=== PATIENT | female | born 1995 | race Caucasian/White ===

== ENCOUNTER 2019-10-24 18:00 | Emergency (ER) | payer OTHER ==
[2019-10-24 18:15] VITALS: BP 120/80; PULSE 62; TEMP 98.3; BMI 33.6
[2019-10-24 18:29] LABS: HCG,QUALITATIVE URINE Negative
[2019-10-24 18:36] LABS: EPITHELIAL CELLS MODERATE /hpf
[2019-10-24] MEDS ORDERED: SODIUM CHLORIDE 0.9% 500 ML INFUS.BAG IV ONE (19:17)
--- NOTE | 2019-10-24 19:22 | PDOC ---
History of Present Illness - General Chief Complaint: Pain, Acute Stated Complaint: ABD PAIN Time Seen by Provider: 10/24/19 19:16 History Source: Patient Exam Limitations: No Limitations - History of Present Illness Initial Comments: 10/24/19 19:19 [id number] p/w LLQ twisting/squeezing abdominal pain for the past 4 days, intermittently, with sharper twinges of pain occasionally. Saw [facility] today and had negative hCG and UA per her report. Notes nausea which is mild, no f/c/v/c, no vaginal discharge or strange odors. Just switched OCP and started her menstrual period this morning and notes it is otherwise normal - she is usually regular monthly but her LMP was 2 weeks ago, attributes it to her new BC. Has had mild diarrhea which is nonbloody and nonblack/nonwhite. Did not take any medications for the pain or nausea. Past History - Medical History Allergies/Adverse Reactions: Allergies Allergy/AdvReac Type Severity Reaction Status Date / Time No Known Allergies Allergy Verified 10/24/19 18:02 Home Medications: Ambulatory Orders Vit No.130/Iron/Folic [ Vitamins] 1 each PO DAILY 08/28/15 Asthma: No Cancer: No Cardiac Disorders: No COPD: No Diabetes: No HTN: No Seizures: No Thyroid Disease: No Other medical history: DENIES - Reproductive History Is Patient Now?: No (UNKNOWN) Cervical CA: No Dysfunctional Uterine Bleeding: No Ectopic : No Endometrial CA: No Polycystic Ovaries: No Tubal Ligation: No - Immunization History Immunization Up to Date: Yes - Psycho-Social/Smoking History Smoking Status: No Smoking History: Never smoked Have you smoked in the past 12 months: No Number of Cigarettes Smoked Daily: 0 - Substance Abuse Hx (Audit-C & DAST Scrn) How often the patient has a drink containing alcohol: Monthly or less Number of drinks the patient has on a typical day: 1 or 2 How often the patient has six or more drinks on one occasion: Never Score: In Men: 4 or > Positive; In Women: 3 or > Positive: 1 Screen Result (Pos requires Nsg. Audit-10AR): Negative In the last yr the pt used illegal drug/Rx for NonMed reason: No Score: Yes response is considered Positive: 0 Screen Result (Positive result requires Nsg. DAST-10): Negative Review of Systems - Review of Systems Able to Perform ROS?: Yes Comments:: 10/25/19 00:05 GEN: no fever, chills, malaise, or generalized weakness HEENT: no ear pain, congestion, sore throat, vision change, or eye pain CV: no chest pain, palpitations, lightheadedness, syncope, or edema RESP: no SOB, wheezing, or cough GI: abdominal pain, nausea, no vomiting, diarrhea, constipation, or rectal bleed : on menstrual period, no dysuria, hematuria, or discharge MSK: no muscle weakness or pain, no joint swelling or pain NEURO: no headache, vertigo, numbness, tingling, or focal weakness PSYCH: no SI, HI, or behavior change SKIN: no jaundice, rash, lesions, or unexplained bruises ROS otherwise negative except as noted in HPI *Physical Exam - Vital Signs Last Vital Signs Temp Pulse Resp BP Pulse Ox 98.3 F 62 16 120/80 100 10/24/19 18:02 10/24/19 18:02 10/24/19 18:02 10/24/19 18:02 10/24/19 18:02 - Physical Exam 10/24/19 19:22 GENERAL: well-appearing, comfortable, A/Ox4, no distress, answers questions appropriately HEENT: PERRLA, EOMI, moist mucous membranes NECK/BACK: no midline ttp, no spinal step-off or deformity, no hematoma, full ROM, neck supple CARDIOVASCULAR: regular rate/rhythm, no MGR, strong peripheral pulses, capillary refill <2 seconds, extremities wwp, no edema LUNGS/RESPIRATORY: no respiratory distress, CTAB GI/ABDOMEN: symmetric [id number], normoactive BS, soft, no tenderness to palpation, no midline pulsatile masses : no CVA tenderness MSK/EXTREMITIES: no muscle atrophy, no acute deformity SKIN: warm and dry, no pallor, no jaundice, no rash, no pathologic-appearing bruising, no skin breakdown, no cuts, no lesions NEUROLOGICAL: GCS 15, CN II-XII grossly intact, 5/5 strength proximally and distally, no facial droop ED Treatment Course - LABORATORY CBC & Chemistry Diagram: 10/24/19 19:40 10/24/19 19:17 - ADDITIONAL ORDERS Additional order review: Laboratory Results 10/24/19 18:21 Urine Color Yellow Urine Appearance Slightly Urine pH 5.5 Urine Protein Trace Urine Glucose (UA) Negative Urine Ketones Negative Urine Blood 3+ H Urine Nitrite Negative Urine Bilirubin Negative Urine Urobilinogen 0.2 Ur Leukocyte Esterase Negative Urine RBC 10-20 Urine WBC 0-2 Ur Transition Epith Cell Moderate Urine Bacteria Rare Urine HCG, Qual Negative - RADIOLOGY Radiology Studies Ordered: Category Date Time Status TRANSVAGINAL ULTRASOUND US [US] Stat Ultrasound 10/24/19 19:17 Ordered Medical Decision Making - Medical Decision Making 10/25/19 00:06 Adult female Pt p/w left-sided abdominal pain. Patient defers pelvic exam and states she had one completed on 10/22/19 at her [facility] appointment. Initial Vital Signs Temp Pulse Resp BP Pulse Ox 98.3 F 62 16 120/80 100 10/24/19 18:02 10/24/19 18:02 10/24/19 18:02 10/24/19 18:02 10/24/19 18:02 Most likely dysmenorrhea or ruptured ovarian cyst, less likely but possible UTI, unlikely ovarian torsion, unlikely ectopic or other more serious [facility] [employer] [facility] pathology. Provider Orders Category Date Time Status CBC WITH DIFFERENTIAL Stat Lab 10/24/19 19:40 Completed COMP METABOLIC PANEL Stat Lab 10/24/19 19:17 Completed PGU [HCG,QUALITATIVE URINE] Stat Lab 10/24/19 18:21 Completed UA ([facility] ONLY) Stat Lab 10/24/19 18:21 Completed URINE MICROSCOPIC (MAG) Stat Lab 10/24/19 18:21 Completed Sodium Chloride [Normal Saline -] Medication 10/24/19 19:17 Discontinued 1,000 ml IV ONCE ONE IV Insert NOW Phy Order 10/24/19 19:17 Completed TRANSVAGINAL ULTRASOUND US [US] Stat Ultrasound 10/24/19 19:17 Taken Medications Discontinued Medications Generic Name Dose Route Start Last Admin Trade Name Freq PRN Reason Stop Dose Admin Sodium Chloride 1,000 ml 10/24/19 19:17 10/24/19 19:21 Normal Saline - IV 10/24/19 19:18 1,000 ml ONCE ONE Administration Lab Results WBC 7.2 K/mm3 (4.0-10.8) 10/24/19 19:40 RBC 4.67 M/mm3 (3.60-5.2) 10/24/19 19:40 Hgb 13.5 GM/dl (10.7-15.3) 10/24/19 19:40 Hct 40.3 % (32.4-45.2) 10/24/19 19:40 MCV 86.2 fl (80-96) 10/24/19 19:40 MCH 28.9 pg (25.7-33.7) 10/24/19 19:40 MCHC 33.5 g/dl (32.0-36.0) 10/24/19 19:40 RDW 12.2 % (11.6-15.6) 10/24/19 19:40 Plt Count 272 K/MM3 (134-434) 10/24/19 19:40 MPV 9.5 fl (7.5-11.1) 10/24/19 19:40 Absolute Neuts (auto) 3.6 K/mm3 10/24/19 19:40 Neutrophils % 49.9 % (42.8-82.8) 10/24/19 19:40 Lymphocytes % 37.6 % (8-40) 10/24/19 19:40 Monocytes % 9.5 % (3.8-10.2) 10/24/19 19:40 Eosinophils % 2.6 % (0-4.5) 10/24/19 19:40 Basophils % 0.4 % (0-2.0) 10/24/19 19:40 Sodium 136 mmol/L (136-145) 10/24/19 19:17 Potassium 3.6 mmol/L (3.5-5.1) 10/24/19 19:17 Chloride 105 mmol/L (98-107) 10/24/19 19:17 Carbon Dioxide 26 mmol/L (21-32) 10/24/19 19:17 Anion Gap 5 MMOL/L (8-16) L 10/24/19 19:17 BUN 11.0 mg/dl (7-18) 10/24/19 19:17 Creatinine 0.7 mg/dl (0.55-1.3) 10/24/19 19:17 Est GFR (CKD-EPI)AfAm 141.54 10/24/19 19:17 Est GFR (CKD-EPI)NonAf 122.12 10/24/19 19:17 Random Glucose 106 mg/dl (74-106) 10/24/19 19:17 Calcium 8.8 mg/dl (8.5-10) 10/24/19 19:17 Total Bilirubin 0.5 mg/dl (0.2-1) 10/24/19 19:17 AST 29 U/L (15-37) 10/24/19 19:17 ALT 48 U/L (13-61) 10/24/19 19:17 Alkaline Phosphatase 56 U/L (45-117) 10/24/19 19:17 Total Protein 7.4 g/dl (6.4-8.2) 10/24/19 19:17 Albumin 4.5 g/dl (3.4-5.0) 10/24/19 19:17 Urine Color Yellow 10/24/19 18:21 Urine Appearance Slightly 10/24/19 18:21 Urine pH 5.5 (4.5-8) 10/24/19 18:21 Urine Protein Trace (NEGATIVE) 10/24/19 18:21 Urine Glucose (UA) Negative (NEGATIVE) 10/24/19 18:21 Urine Ketones Negative (NEGATIVE) 10/24/19 18:21 Urine Blood 3+ (NEGATIVE) H 10/24/19 18:21 Urine Nitrite Negative (NEGATIVE) 10/24/19 18:21 Urine Bilirubin Negative (NEGATIVE) 10/24/19 18:21 Urine Urobilinogen 0.2 (0.2-1.0) 10/24/19 18:21 Ur Leukocyte Esterase Negative (NEGATIVE) 10/24/19 18:21 Urine RBC 10-20 /hpf (0-4) 10/24/19 18:21 Urine WBC 0-2 (NEGATIVE) 10/24/19 18:21 Ur Transition Epith Cell Moderate /hpf 10/24/19 18:21 Urine Bacteria Rare /hpf (NEGATIVE) 10/24/19 18:21 Urine HCG, Qual Negative 10/24/19 18:21 EXAM: TRANSVAGINAL ULTRASOUND US HISTORY: Pelvic pain. COMPARISON: None currently available. Preliminary findings/impression: Trace free fluid within the pelvic cul-de-sac, likely physiologic. Otherwise, no evidence of pelvic abnormalities on this examination. This Pt has gotten significant relief of symptoms while in the ED. On last reassessment, vitals are wnl, pain is reasonably controlled, and exam is benign. Workup is not concerning for emergency-level pathology at this time. This Pt is appropriate for discharge with close outPt follow up. She comfortable with this plan and will follow up with her primary care provider in 1-3 days. Specific return precautions are discussed and they will come back to the ER if necessary Discharge - Discharge Information Problems reviewed: Yes Clinical Impression/Diagnosis: Abdominal pain Qualifiers: Abdominal location: left lower quadrant Qualified Code(s): R10.32 - Left lower quadrant pain Diarrhea Qualifiers: Diarrhea type: unspecified type Qualified Code(s): R19.7 - Diarrhea, unspecified Condition: Stable Disposition: HOME - Admission No - Follow up/Referral - Patient Discharge Instructions Patient Printed Discharge Instructions: DI for Abdominal Pain-Adult Additional Instructions: You were seen in the ER for abdominal pain and nausea. We did an exam, labs, and an ultrasound. After our assessment, we do not believe you are having a medical emergency at this time, and we believe you are safe to go home. Please follow up with your regular PCP in 1-3 days. Call their clinic, tell them you were seen in the ER, and tell them you need a follow-up. If you have any new or worsening symptoms, please come back to the ER at any time (24 hours a day). Especially come back if you have high fevers, worsening pain, rectal bleeding, passing out, or other emergency symptoms. If you are having severe or life threatening symptoms, or symptoms that make it unsafe to drive or have someone drive you, please call 911. - Post Discharge Activity
[2019-10-24 19:43] LABS: BASO % 0.4 % (0-2.0); EOS % 2.6 % (0-4.5); HEMATOCRIT 40.3 % (32.4-45.2); HEMOGLOBIN 13.5 GM/dl (10.7-15.3); LYMPH % 37.6 % (8-40); MCH 28.9 pg (25.7-33.7); MCHC 33.5 g/dl (32.0-36.0); MEAN CELL VOLUME 86.2 fl (80-96); MEAN PLT VOLUME 9.5 fl (7.5-11.1); MONO % 9.5 % (3.8-10.2); NEUT % 49.9 % (42.8-82.8); PLATELET COUNT 272 K/MM3 (134-434); RBC 4.67 M/mm3 (3.60-5.2); RDW 12.2 % (11.6-15.6); WHITE BLOOD COUNT 7.2 K/mm3 (4.0-10.8)
[2019-10-24 20:07] LABS: ALBUMIN 4.5 g/dl (3.4-5.0); BILIRUBIN,TOTAL 0.5 mg/dl (0.2-1); CALCIUM 8.8 mg/dl (8.5-10); CREATININE 0.7 mg/dl (0.55-1.3); POTASSIUM 3.6 mmol/L (3.5-5.1); TOT PROT 7.4 g/dl (6.4-8.2)
== END 2019-10-24 22:02 | disposition home or self-care (01) ==
LOC: FER 18:00
DX: R10.32 Left lower quadrant pain (principal); R19.7 Diarrhea, unspecified
CPT/HCPCS: 36415; 76830-TC; 80053; 81003; 81015; 84703; 85025; 99284-25

== ENCOUNTER 2021-04-18 16:04 | Emergency (ER) | payer OTHER ==
[2021-04-18 16:56] VITALS: BP 101/68; PULSE 85; TEMP 99.4; BMI 28.8
[2021-04-18] MEDS ORDERED: ONDANSETRON *ODT* 4 MG TABLET SL ONE (16:56)
[2021-04-18] MEDS ORDERED: FAMOTIDINE 20 MG TABLET PO ONE (16:56)
[2021-04-18] MEDS ORDERED: MAG HYDROX/AL HYDROX/SIMETH 30 ML UNIT-DOSE CUP PO ONE (16:56)
[2021-04-18] MEDS ORDERED: ONDANSETRON *ODT* 4 MG TABLET ONE (17:11)
[2021-04-18] MEDS ORDERED: FAMOTIDINE 20 MG TABLET ONE (17:11)
[2021-04-18] MEDS ORDERED: MAG HYDROX/AL HYDROX/SIMETH 30 ML UNIT-DOSE CUP ONE (17:11)
== END 2021-04-18 18:39 | disposition home or self-care (01) ==
LOC: FER 16:04
DX: R10.13 Epigastric pain (principal)
CPT/HCPCS: 36415; 81003; 84484; 87086; 99284-25; Q0162

== ENCOUNTER 2021-08-13 03:54 | Inpatient (IN) | payer OTHER ==
[2021-08-13] MEDS ORDERED: AMPICILLIN SODIUM 2 GM VIAL ONE (05:04)
[2021-08-13] MEDS ORDERED: DEXTROSE 5%-LACTATED RINGERS 1,000 ML IV SCH (05:20)
[2021-08-13] MEDS ORDERED: PROMETHAZINE HCL 25 MG/1 ML VIAL IVPUSH ONE (05:21)
[2021-08-13] MEDS ORDERED: BUTORPHANOL TARTRATE 1 MG/ML VIAL IVPB ONE (05:21)
[2021-08-13 05:31] VITALS: BMI 33.5
[2021-08-13] MEDS ORDERED: AMPICILLIN - 2 GM in SODIUM CHLORIDE 100 ML IVPB ONE (05:43)
[2021-08-13 05:46] LABS: BASO % 0.1 % (0-2.0); EOS % 0.4 % (0-4.5); HEMATOCRIT 38.6 % (32.4-45.2); LYMPH % 12.2 % (8-40); MCH 29.1 pg (25.7-33.7); MCHC 33.6 g/dl (32.0-36.0); MEAN CELL VOLUME 86.4 fl (80-96); MEAN PLT VOLUME 10.2 fl (7.5-11.1); MONO % 6.4 % (3.8-10.2); NEUT % 80.9 % (42.8-82.8); PLATELET COUNT 190 10^3/uL (134-434); RBC 4.47 M/mm3 (3.60-5.2); WHITE BLOOD COUNT 15.2 K/mm3 (4.0-10.0)
[2021-08-13 06:02] LABS: CALCIUM 8.8 mg/dL (8.5-10.1)
[2021-08-13 06:03] LABS: BLOOD UREA NITROGEN 6.6 mg/dL (7-18)
[2021-08-13 06:06] LABS: CREATININE 0.5 mg/dL (0.55-1.3)
[2021-08-13 06:12] LABS: INR 0.93 (0.83-1.09); PROTHROMBIN TIME (PATIENT) 10.7 SEC (9.7-13.0)
[2021-08-13 06:16] LABS: ACTIVATED PTT 26.3 SECONDS (25.2-36.5)
[2021-08-13] MEDS ORDERED: BUTORPHANOL TARTRATE 1 MG/ML VIAL ONE (07:59)
[2021-08-13] MEDS ORDERED: PROMETHAZINE HCL 25 MG/1 ML VIAL ONE (07:59)
[2021-08-13] MEDS ORDERED: BUTORPHANOL TARTRATE 1 MG/ML VIAL IVPUSH PRN (08:00)
[2021-08-13] MEDS ORDERED: AMPICILLIN SODIUM 1 GM VIAL ONE (08:21)
[2021-08-13] MEDS ORDERED: AMPICILLIN - 1 GM in SODIUM CHLORIDE 100 ML IVPB SCH (09:43)
[2021-08-13] MEDS ORDERED: OXYTOCIN 20 UNITS in 0.9% NS 20 UNIT/1,000 ML INFUS.BAG IV ONE (09:46)
[2021-08-13] MEDS ORDERED: OXYTOCIN 30 UNITS in 0.9% NS 30 UNIT/500 ML INFUS.BAG IVPB ONE (09:50)
[2021-08-13] MEDS ORDERED: OXYTOCIN 30 UNITS in 0.9% NS 30 UNIT/500 ML INFUS.BAG IVPB SCH (10:00)
[2021-08-13] MEDS ORDERED: BENZOCAINE 20% 57 GM BOTTLE TP PRN (10:59)
[2021-08-13] MEDS ORDERED: BISACODYL 10 MG SUPP.RECT RC PRN (10:59)
[2021-08-13] MEDS ORDERED: BENZOCAINE 28 GM HEMORRHOIDAL OINTMENT TP PRN (10:59)
[2021-08-13] MEDS ORDERED: oxyCODONE HCL 5 MG TABLET PO PRN (10:59)
[2021-08-13] MEDS ORDERED: METHYLERGONOVINE MALEATE 0.2 MG/1 ML AMP IM PRN (10:59)
[2021-08-13] MEDS ORDERED: WITCH HAZEL 50% (TUCKS) 40 PAD/JAR PAD TP PRN (10:59)
[2021-08-13] MEDS ORDERED: ACETAMINOPHEN 325 MG TABLET (FP) PO PRN (10:59)
[2021-08-13] MEDS ORDERED: OXYTOCIN 20 UNITS in 0.9% NS 20 UNIT/1,000 ML INFUS.BAG IV SCH (11:00)
[2021-08-13] MEDS ORDERED: IBUPROFEN 600 MG TABLET (FP) PO ONE (11:39)
[2021-08-13] MEDS: IBUPROFEN 600 MG TABLET (FP) PO PRN (11:42)
[2021-08-13] MEDS: FERROUS SO4 325 MG TABLET (FP) PO SCH (19:24)
[2021-08-14] MEDS: IBUPROFEN 600 MG TABLET (FP) PO PRN (06:07)
[2021-08-14 08:17] LABS: BASO % 0.3 % (0-2.0); EOS % 1.2 % (0-4.5); HEMATOCRIT 29.8 % (32.4-45.2); HEMOGLOBIN 10.2 GM/dL (10.7-15.3); LYMPH % 23.4 % (8-40); MCH 29.6 pg (25.7-33.7); MCHC 34.1 g/dl (32.0-36.0); MEAN CELL VOLUME 86.9 fl (80-96); MONO % 7.5 % (3.8-10.2); NEUT % 67.6 % (42.8-82.8); PLATELET COUNT 157 10^3/uL (134-434); RBC 3.43 M/mm3 (3.60-5.2); RDW 13.8 % (11.6-15.6); WHITE BLOOD COUNT 13.2 K/mm3 (4.0-10.0)
[2021-08-14] MEDS: FERROUS SO4 325 MG TABLET (FP) PO SCH ×2 (09:51→17:36)
[2021-08-14] MEDS: PRENATAL VITAMINS W/ FOLIC ACID TABLET (FP) PO SCH (09:51)
[2021-08-14] MEDS ORDERED: SENNOSIDES/DOCUSATE COMBO (SENNA PLUS) TABLET (UD) PO PRN (22:00)
[2021-08-15] MEDS: FERROUS SO4 325 MG TABLET (FP) PO SCH (08:20)
[2021-08-15 09:32] VITALS: BP 127/79; PULSE 94; TEMP 97.3
[2021-08-15] MEDS: PRENATAL VITAMINS W/ FOLIC ACID TABLET (FP) PO SCH (09:54)
== END 2021-08-15 11:58 | disposition home or self-care (01) | DRG 560 ==
LOC: JDEL 03:54 → JLDR 05:00 → J3W 13:20
PROVIDERS: ADMIT Obstetrics & Gynecology; ATTEND Obstetrics & Gynecology
PROC: 10E0XZZ Delivery of Products of Conception, External Approach (ICD-10-PCS; principal; 2021-08-13)
DX: O69.89X0 Labor and delivery complicated by other cord complications, not applicable or unspecified (principal); E66.9 Obesity, unspecified; O99.214 Obesity complicating childbirth; O99.824 Streptococcus B carrier state complicating childbirth; B95.1 Streptococcus, group B, as the cause of diseases classified elsewhere; Z3A.38 38 weeks gestation of pregnancy; Z37.0 Single live birth
CPT/HCPCS: 36415; 59409; 80048; 85025; 85610; 85730; 86780; 86850; 86900; 86901; C9803-CS; U0003; U0005

== ENCOUNTER 2022-10-30 09:11 | Emergency (ER) | payer OTHER ==
[2022-10-30] MEDS ORDERED: KETOROLAC TROMETHAMINE 15 MG/ML VIAL IM ONE (09:33)
[2022-10-30 09:36] VITALS: BP 120/73; PULSE 57; RESP 15; TEMP 98.9; BMI 30.2
[2022-10-30] MEDS ORDERED: KETOROLAC TROMETHAMINE 15 MG/ML VIAL ONE (09:36)
== END 2022-10-30 10:18 | disposition home or self-care (01) ==
LOC: FER 09:11
PROC: 3E0233Z Introduction of Anti-inflammatory into Muscle, Percutaneous Approach (ICD-10-PCS; principal; 2022-10-30)
DX: M54.2 Cervicalgia (principal); R51.9 Headache, unspecified; S16.1XXA Strain of muscle, fascia and tendon at neck level, initial encounter; V44.5XXA Car driver injured in collision with heavy transport vehicle or bus in traffic accident, initial encounter; Y92.410 Unspecified street and highway as the place of occurrence of the external cause
CPT/HCPCS: 99284-25

== ENCOUNTER 2023-03-22 06:31 | Emergency (ER) | payer OTHER ==
[2023-03-22 06:40] VITALS: BP 119/82; PULSE 86; RESP 20; TEMP 97.7; BMI 26.5
[2023-03-22] MEDS ORDERED: ONDANSETRON *ODT* 4 MG TABLET ONE (06:43)
[2023-03-22] MEDS: ONDANSETRON *ODT* 4 MG TABLET SL ONE (06:48)
== END 2023-03-22 09:54 | disposition home or self-care (01) ==
LOC: JER 06:31
DX: R11.10 Vomiting, unspecified (principal); R19.7 Diarrhea, unspecified; Z20.822 Contact with and (suspected) exposure to COVID-19
CPT/HCPCS: 0241U-QW; 84703; 99283-25; Q0162